=== PATIENT | female | born 1970 | race Caucasian/White ===

== ENCOUNTER → 2017-06-18 | Outpatient (CLI) | payer BC ==
--- NOTE | 2017-06-18 15:32 | MAMMOGRAPHY REPORT ---
BILATERAL DIGITAL SCREENING MAMMOGRAM TOMOSYNTHESIS WITH CAD: 06/18/2017 CLINICAL HISTORY: Routine screening. Patient has no complaints. TECHNIQUE: Breast tomosynthesis in addition to standard 2D mammography was performed. Current study was also evaluated with a Computer Aided Detection (CAD) system. COMPARISON: Comparison is made to exams dated: 06/11/2016 mammogram, 05/15/2015 mammogram, 4 mammogram, 03/24/2013 mammogram - [facility], and 06/12/2011 mammogram - [facility]. BREAST COMPOSITION: The tissue of both breasts is almost entirely fatty. FINDINGS: No suspicious masses, calcifications, or areas of architectural distortion are noted in ei ther breast. There has been no significant interval change compared to prior exams. IMPRESSION: ACR BI-RADS CATEGORY 1: NEGATIVE There is no mammographic evidence of malignancy. A 1 year screening mammogram is recommended. The pa tient will receive written notification of the results. Approximately 10% of breast cancers are not detected with mammography. A negative mammographic report should not delay biopsy if a clinically suggestive mass is present. Monserrat Nava M.D. /:06/18/2017 15:02:56 Consulting Psychologist: Nga CAT(Arielle)(Dino)(BD), [facility] letter sent: Normal 1/2 BI-RADS Code: ACR BI-RADS Category 1: Negative
== END | disposition home or self-care (01) ==
LOC: C.MAMM 14:08
PROVIDERS: ATTEND Obstetrics & Gynecology
DX: Z12.31 Encounter for screening mammogram for malignant neoplasm of breast (principal)

== ENCOUNTER 2018-10-14 09:51 | Observation (INO) ==
--- NOTE | 2018-10-03 09:19 | PAT Medication Instructions ---
Medication Instructions Date of Service October 03, 2018 Home Medications sertraline 25 mg PO HS Take evening before surgery sertraline 25 mg PO HS NOTHING TO EAT OR DRINK AFTER MIDNIGHT Other Notes If you have any questions please call us at [phone] or [phone] or [phone] or [phone]
--- NOTE | 2018-10-03 09:19 | Anesthesiology Consultation ---
Date of Service October 03, 2018 Assessment & Plan (1) Encounter for pre-operative examination: CHECK TEST AM DOS CHECK BSG AM DOS Chart Review Chart Review: Acceptable Risk for Surgery and Patient seen in Pre Admission Maria E lacho Teaching & Discussion Instructed NPO after midnight before surgery, except medications with 15 cc of water. Medication instructions provided according to the PAT guidelines. History Surgery Operation Date: 10/14/18 11:40 Proposed Procedures p Robotic Total Laparoscopic Hysterectomy - Jackie Galan MD Height/Weight Height: 5 ft 5 in Weight: 122.2 kg Allergies Allergy/AdvReac Type Severity Reaction Status Date / Time amoxicillin Allergy Intermediate RASH Verified 09/30/18 08:11 oxycodone AdvReac Intermediate vomiting Verified 09/30/18 08:11 Medications Home Medications Medication Instructions Recorded Confirmed Last Taken sertraline 25 mg PO HS 09/30/18 09/30/18 Unknown Past Medical History Medical History Depression Diabetes type 2, controlled A1C 6.9, recent diagnosis, no medications yet, to start diabetic diet and f/u with PCP 1 month Morbid obesity Nausea and vomiting after administration of anesthetic agent Past Surgical History Surgical History History of section History of cholecystectomy History of colonoscopy History of dilatation and curettage History of myringotomy History of tonsillectomy Past Anesthesia History No Hx of Anesthesia Complications (OTHER THAN PONV) D+C 2015 [facility]: MAC 3, ETT 7.5, atraumatic intubation. History of PONV Yes Motion Sickness Screening History of Motion Sickness: Yes Social History Smoking Status: Never smoker Do You Dip or Chew Tobacco: No Hx Alcohol Use: No Alcohol Intake Frequency Comment: 0 Hx Substance Use: No substance use type: does not use Exercise / Class Metabolic Activity II 4-5 Yardwork/Stairs/Walk up hill (DENIES CP OR SOB WITH STAIRS) Review of Systems Pt denies any recent chest pain, shortness of breath, palpitations, cough, fever or URI. Physical Exam Vital Signs BP: 123/82 P: 80bpm SPO2: 99% RA T: 98.1 F R: 16 ENMT Mouth: + dental restorations (one implant upper left canine); no chipped teeth and no loose teeth Thyromental Distance: > or= 3.5 Finger Breadths (4) Mallampati Class: III Neck + short neck and + thick neck; neck extension not limited Respiratory normal respiratory effort Auscultation: lungs clear to auscultation bilaterally Cardiovascular Rate/Rhythm: regular rate and regular rhythm Heart Sounds: no murmur Testing Electrocardiogram Date: 10/03/18 Findings: + NSR @ (73) Laboratory Results 10/03/18 09:35 Blood Type O Positive 10/03/18 09:35 Antibody Screen NEGATIVE 10/03/18 09:35 09/27/18 SODIUM: 137 POTASSIUM: 4.3 CHLORIDE: 104 CO2: 25 BUN: 12 CREATININE: 0.65 GLUCOSE: 126
[2018-10-03 10:21] LABS: Basophils # (auto) 0.02 K/uL (0-0.2); Basophils % (auto) 0.2 %; Eosinophils # (auto) 0.13 K/uL (0-0.5); Eosinophils % (auto) 1.5 %; Hematocrit (blood only) 34.5 % (37-47); Hemoglobin 10.9 g/dL (12.0-16.0); Immature Granulocytes # (auto) 0.07 K/uL (0.00-0.02); Immature Granulocytes % (auto) 0.8 %; Lymphocytes # (auto) 2.36 K/uL (1.2-3.4); Lymphocytes % (auto) 26.5 %; Mean Corpuscular Hgb Conc 31.6 g/dL (32-36); Mean Corpuscular Volume 81.8 fL (80-100); Mean Platelet Volume 9.5 fL (7.4-10.4); Monocytes # (auto) 0.49 K/uL (0.11-0.59); Monocytes % (auto) 5.5 %; Neutrophils # (auto) 5.85 K/uL (1.4-6.5); Neutrophils % (auto) 65.5 %; Platelet Count 332 K/uL (130-400); RDW Coefficient of Variation 14.2 % (11.5-14.5); RDW Standard Deviation 42.7 fL (36.4-46.3); Red Blood Count 4.22 M/uL (4.2-5.4); White Blood Count 8.92 K/uL (4.8-10.8)
[~2018-10-14 09:51] MED LIST: CIPROFLOXACIN 400 MG/200 ML BAG IV SCH; CLINDAMYCIN 600 MG/54 ML BAG IV SCH; LACTATED RINGER'S 1,000 ML IV SCH; LR 15ML/HR IV SCH; SCOPOLAMINE 1.5 MG TDSY TD SCH
[2018-10-14] MEDS ORDERED: DEXAMETHASONE SOD INJ 4 MG/ML VIAL ONE ×2 (11:16→13:25)
[2018-10-14] MEDS ORDERED: ePHEDrine sulfate 50 MG/ML AMP ONE (11:16)
[2018-10-14] MEDS ORDERED: LIDOCAINE HCL 2% 2 ML VIAL/AMP(20MG/ML) INFIL ONE (11:16)
[2018-10-14] MEDS ORDERED: SUCCINYLCHOLINE CHLORIDE 20 MG/ML 10 ML VIAL ONE (11:16)
[2018-10-14] MEDS ORDERED: PROPOFOL IV EMULSION 10 MG/ML 20 ML VIAL IV ONE (11:16)
[2018-10-14] MEDS ORDERED: ONDANSETRON INJ 2 MG/ML 2 ML VIAL ONE (11:16)
[2018-10-14] MEDS ORDERED: NEOSTIGMINE METHYLSULFATE 5 MG/5 ML SYR ONE (11:16)
[2018-10-14] MEDS ORDERED: MIDAZOLAM HCL 1 MG/ML 2ML VIAL ONE (11:16)
[2018-10-14] MEDS ORDERED: GLYCOPYRROLATE 0.2 MG/ML VIAL ONE (11:16)
[2018-10-14] MEDS ORDERED: PHENYLEPHRINE HCL 10 MG/ML VIAL ONE (11:16)
[2018-10-14] MEDS ORDERED: fentaNYL citrate 100 MCG/2 ML VIAL ONE (11:17)
[2018-10-14] MEDS ORDERED: HYDROmorphone INJ 2 MG/ML SYR/VIAL ONE (11:18)
[2018-10-14] MEDS ORDERED: fentaNYL citrate 100 MCG/2 ML VIAL IV PRN (12:07)
[2018-10-14] MEDS ORDERED: HYDROmorphone INJ 2 MG/ML SYR/VIAL IV PRN (12:07)
[2018-10-14] MEDS ORDERED: ePHEDrine sulfate 50 MG/ML AMP IV PRN (12:07)
[2018-10-14] MEDS ORDERED: ATROPINE SULFATE 0.1 MG/ML 10ML SYR IV PRN (12:07)
[2018-10-14] MEDS ORDERED: KETOROLAC 30 MG/ML VIAL IV PRN ×2 (12:07→15:31)
[2018-10-14] MEDS ORDERED: DEXAMETHASONE SOD INJ 4 MG/ML VIAL IV PRN (12:07)
[2018-10-14] MEDS ORDERED: ONDANSETRON INJ 2 MG/ML 2 ML VIAL IV PRN ×2 (12:07→15:31)
--- NOTE | 2018-10-14 13:00 | History & Physical Bridge Note ---
Date of Service October 14, 2018 History & Physical Bridge Note I have examined the patient, reviewed the History & Physical and in the interval since the performance of the History & Physical I have noted the following changes of clinical significance: no changes noted
[2018-10-14] MEDS ORDERED: METHYLENE BLUE 0.5% 10 ML VIAL ONE (13:16)
[2018-10-14] MEDS ORDERED: raNITIdine HCl 25 MG/ML VIAL ONE (14:06)
[2018-10-14] MEDS ORDERED: ALBUTEROL HFA INHALER 8.5 GM ONE (14:07)
[2018-10-14] MEDS ORDERED: ROCURONIUM BROMIDE 10 MG/ML 5 ML VIAL ONE (14:48)
[2018-10-14] MEDS ORDERED: ACETAMINOPHEN 325 MG TAB PO PRN (15:31)
[2018-10-14] MEDS ORDERED: PROMETHAZINE HCL 25 MG in SODIUM CHLORIDE 0.9% 50 ML IV PRN (15:31)
[2018-10-14] MEDS ORDERED: OXYCODONE/ACETAMINOPHEN 5mg/325mg TAB PO PRN ×2 (15:31)
[2018-10-14] MEDS ORDERED: IBUPROFEN 600 MG TAB PO PRN (15:31)
[2018-10-14] MEDS ORDERED: PROMETHAZINE HCL 12.5 MG in SODIUM CHLORIDE 0.9% 50 ML IV PRN (15:31)
[2018-10-14] MEDS ORDERED: MEPERIDINE HCL 50 MG/ML CARP IV PRN (15:31)
[2018-10-14] MEDS ORDERED: MEPERIDINE HCL 25 MG/ML CARP IV PRN (15:31)
--- NOTE | 2018-10-14 15:31 | Operative Report ---
Post Operative Report Pre & Post Diagnosis Operation Date: 10/14/18 11:40 Pre-Op Diagnosis: Abnormal Uterine Bleeding, Uterine Fibroid Post-Op Diagnosis: Abnormal Uterine Bleeding, Uterine Fibroid Procedure Operation Date: 10/14/18 11:40 Actual Procedures p Robotic Total Laparoscopic Hysterectomy, bilateral salpingectomy, cystoscopy - Jackie Galan MD Surgeon Jackie Galan MD Protein Purification Scientist None Estimated Blood Loss 20 Findings Consistent with Post-Op Diagnosis Specimens Uterus, Fallopian Tubes, Cervix Anesthesia Type General Complications none Disposition Accompanied Patient To Recovery: Yes Disposition: Recovery Room Description of Procedure The patient was brought to the operating room and placed on the table in dorsal lithotomy position with yellofin stirrups, prepped and draped in standard sterile fashion, and a hard time out was taken prior to proceeding. The bladder was emptied via placement of hernandez catheter. A [employer] uterine manipulator was placed in the usual manner. Attention was then turned to the abdomen where optical entry was made at the umbilicus without complication. The abdomen was insufflated and the patient was placed in steep Trendelenburg. Under direct visualization, right and left lower quadrant ports were placed without complication. Survey of the abdomen revealed a fibroid uterus, normal tubes and ovaries, normal upper quadrants. There was an omental adhesion into an um bilical hernia. The robot was then docked and surgery proceeded with the surgeon at the console. Careful cold and sharp dissection was used to take down the omentum in the umbilical hernia and restore a clear line of sight to the pelvis. The ureter was identified on each side and traced along its course into the pelvis. Each fallopian tube in turn was elevated, dissected off the mesosalpinx and left attached to the uterine cornu. Each utero-ovarian ligament was ligated and then divided. Each round ligament was ligated and then divided. The anterior leaflets of the broad ligament were dissected to create a bladder flap which was gently mobilized downward below the colpotomy cup ridge. Each uterine artery was skeletonized, ligated, and then divided. Circumferential colpotomy was then completed following the colpotomy cup guide. The cervix, uterus and bilateral tubes were then retrieved en bloc via the vagina. The vaginal cuff was then closed using V-Dante suture in the typical running non-locked fashion. The needle was retrieved through a trocar, and suction/irrigation was then used to remove any debris and ensure good hemostasis at all working sites. After administration of IV Methylene Blue dye, cystoscopy was then utilized to examine the bladder dome which was free of suture or injury. The ureteral orifices were observed until a good strong jet of blue stained urine was seen from each. The bladder was then drained. The robot was then undocked, and abdominal trocar sites were closed using a UR6 at the umbilical fascia and 4-0 monocryl at each of the skin incisions. A dermabond dressing was applied to each site. A final vaginal exam ensured no materials were present in the vagina and the cuff was intact. The patient was then transferred in stable condition to the recovery room. I attest to the content of the Intraoperative Record and any orders documented therein. Any exceptions are noted below.
[2018-10-14] MEDS ORDERED: LACTATED RINGER'S 1,000 ML IV SCH (15:45)
[2018-10-14] MEDS ORDERED: CHECK SCOPOLAMINE PATCH PLACEMENT SCH (16:00)
[2018-10-14 17:00] LABS: Hematocrit (blood only) 35.5 % (37-47); Hemoglobin 11.4 g/dL (12.0-16.0)
--- NOTE | 2018-10-14 17:09 | Anesthesiology Progress Note ---
Date of Service October 14, 2018 Anesthesia Post Procedure Vital Signs Vital Signs: Temp Pulse Pulse Resp BP BP Pulse Ox 10/14/18 16:58 37.5 C 90 18 132/76 92 10/14/18 16:36 85 14 90 10/14/18 16:35 85 17 136/79 93 10/14/18 16:30 86 16 122/60 93 10/14/18 16:25 83 12 131/84 99 10/14/18 16:20 96 H 17 135/80 90 10/14/18 16:17 92 H 16 129/103 H 90 10/14/18 16:12 36.0 C L 89 16 143/67 H 96 10/14/18 10:21 36.9 C 95 H 18 166/89 H 97 Notes Mental Status: alert / awake / arousable and participated in evaluation Patient Amnestic to Procedure: Yes Nausea / Vomiting: adequately controlled Pain: adequately controlled Airway Patency, RR, SpO2: stable & adequate BP & HR: stable & adequate Hydration State: stable & adequate Anesthetic Complications: no major complications apparent and Pt Satisfied with anesthetic care Notes: will discharge patient to floor on continuous pulse oximetry.
[2018-10-14] MEDS ORDERED: DOCUSATE SODIUM 100 MG CAP PO SCH (21:00)
--- NOTE | 2018-10-17 07:23 | Discharge Summary ---
Date of Service October 17, 2018 Admission HPI Per Admitting Provider Radha was admitted for planned TLH with robotic assist, which was performed without complication. See operative report for details. She was discharged home on POD#0 as usual after meeting discharge criteria. She will f/u in 2 and 6 weeks. Discharge Data Procedures Performed Operation Date: 10/14/18 11:40 Actual Procedures p Robotic Total Laparoscopic Hysterectomy, bilateral salpingectomy, - Jackie Galan MD s Cystoscopy - Jackie Galan MD
== END 2018-10-14 21:16 | disposition home or self-care (01) ==
LOC: 4N 09:51 → ASU 09:51